=== PATIENT | male | born 1970 | race Caucasian/White ===

== ENCOUNTER 2018-12-16 18:04 | Inpatient (IN) ==
[2018-12-16] MEDS ORDERED: 0.9 % Sodium Chloride Mini Bag 100 ML ONE (23:40)
[2018-12-16] MEDS: *HR* HYDROcodone/Acet 5/325 mg TABLET PO PRN (23:50)
[2018-12-16] MEDS: Ampicillin/Sulbactam 3,000 MG in 0.9 % Sodium Chloride Mini Bag 100 ML IVPB SCH (23:50)
[2018-12-17] MEDS: Ampicillin/Sulbactam 3,000 MG in 0.9 % Sodium Chloride Mini Bag 100 ML IVPB SCH ×2 (05:48→17:33)
[2018-12-17] MEDS: *HR* HYDROcodone/Acet 5/325 mg TABLET PO PRN ×3 (05:49→23:20)
[2018-12-17 10:44] LABS: Calcium 8.6 mg/dL (8.6-10.3)
--- NOTE | 2018-12-17 16:33 | Internal Med History&Physical ---
Date of Encounter: 12/17/18 Time of Encounter: 15:40 Assessment and Plan (1) Abscess of lung with pneumonia Current visit: No Status: Acute Status post LLL lobectomy. Continue IV antibiotics and bulb suction drainage. Lactobacillus will be added. Qualifiers: Laterality: left Lung location: lower lobe of lung Qualified Code(s): J85.1 - Abscess of lung with pneumonia (2) Empyema Current visit: No Status: Acute As above (3) Anemia Current visit: No Status: Acute He received 1 unit of blood transfusion, iron infusion, and Aranesp during his [facility] stay. Recheck iron profile labs in a.m. Qualifiers: Anemia type: other cause Other causes of anemia: chronic disease, other Qualified Code(s): D63.8 - Anemia in other chronic diseases classified elsewhere (4) Acute kidney injury Current visit: No Status: Acute Creatinine has decreased to 3.18 with estimated GFR 21. Renal indices were normal prior to recent [facility] hospitalization. Continue to monitor renal indices. Internal Medicine - H&P: HPI Chief complaint: Left lower lobe abscess with lobectomy Admitted From: Hospital to Hospital Transfer Plans for Post Hospital Care: Home History of present illness: Mr. Colorado is a 48 year old male who was hospitalized at [facility] 11/27/2018 to 12/16/2018 and underwent a left lower lobectomy on November 29 for LLL abscess. Cultures showed Peptostreptococcus anaeurobius, 2 species of Parvimonas micra and an anaerobic Gram positive rickie. He was placed on Unasyn and will continue this for 10 days in swing bed. He had been treated for pneumonia a few weeks before his [facility] stay. Respiratory history is significant for having smoked from age [age] never exce eding 1 pack per day. He denies chronic lung disease and does not use home oxygen. He has not been tested for sleep apnea. Past Med Surg Social Fam HX - Past Medical History Medical history: other Psychiatric history: no psych history - Past Surgical History Additional surgical history: foot surgery with plating - Social History Smoking Status: Former smoker Smokeless Tobacco Status: No Alcohol use: occasionally Drug use: none Internal Medicine - H&P: Meds Ampicillin/Sulbactam [Unasyn] 3,000 mg IVPB Q6HR 11 Days #33 vial 12/16/18 [Rx] Allergy/AdvReac Type Severity Reaction Status Date / Time No Known Allergies Allergy Verified 10/25/18 16:20 All Systems PM: A 10-system review of systems was performed and is negative for pertinent findings except as documented above in the HPI. Review of systems: Gen.: He states his weight has been stable several months Cardiovascular: He denies hypertension NH heart failure angina DVT or pulmonary embolus Respiratory: As per history of present illness GI: He denies disorders of his liver gallbladder or exocrine pancreas : He denies hematuria dysuria or kidney stones Neurologic: He denies large distribution strokes or seizures. Endocrine: He denies diabetes thyroid disease or hyperlipidemia Hematology/oncology: He denies blood disorders cancers or anemia Psychiatric: He denies anxiety depression or other mental health issues [place] skeletal: He had surgery on his left foot several years ago. He denies arthritis gout or other bone joint or muscle disorders - Constitutional Vitals: Temp Pulse Resp BP Pulse Ox 98.5 F 77 16 136/84 97 12/17/18 06:51 12/17/18 06:51 12/17/18 06:51 12/17/18 06:51 12/17/18 14:20 Exam: Gen.: He is a well-developed well-nourished male sitting comfortably in bed who appears in no acute distress HEENT: Head is atraumatic and normocephalic. Eyes: EOMI. There is no scleral icterus. Mouth: Mucosa is moist. Neck: Has a bandage over his right lower neck area from dialysis catheter placement which was later removed. There is no thyromegaly or adenopathy noted. Heart: Regular without murmurs gallops or ectopics Lungs: No wheezes or crackles are heard in the right lung. Left lung has significantly diminished breath sounds in the bases. No wheezes or crackles are heard. Chest: He has a surgical incision with overlying bandage in place in the left lateral upper chest area. A drain tube with suction drainage bulb is present. Abdomen: Soft and nontender. No masses or guarding are noted. Extremities: There is no cyanosis edema or clubbing noted. Dorsalis pedis and posterior tibial pulses are trace palpable bilaterally. Neurologic: Mental status: He is talkative and a good historian. Cranial nerves: Smile is symmetric. Forehead crackles bilaterally. Tongue protrudes midline. EOMI. Motor: There is no pronator drift. Cerebellar: Finger to nose is intact bilaterally. Skin: Warm and dry Internal Med - H&P Results - Labs CBC & Chem 7: 12/17/18 10:18 Labs: BMP 12/17/18 10:18 Sodium 138 Potassium 4.0 Chloride 101 Carbon Dioxide 29 BUN 30 H Creatinine 3.18 H Glucose 120 H Calcium 8.6
[2018-12-17] MEDS: Lactobacillus 1 EACH CAP.SPRINK PO SCH (20:54)
[2018-12-18 05:30] LABS: BUN/Creatinine Ratio 10 (6-26); Blood Urea Nitrogen 27 mg/dL (6-20); eGFR For Non-African Americans 25 (> 60)
[2018-12-18] MEDS: Ampicillin/Sulbactam 3,000 MG in 0.9 % Sodium Chloride Mini Bag 100 ML IVPB SCH ×2 (05:48→18:13)
[2018-12-18] MEDS: Lactobacillus 1 EACH CAP.SPRINK PO SCH ×2 (07:35→22:00)
[2018-12-18 08:58] LABS: % Iron Saturation 27 % (20-55); Iron 55 mcg/dL (65-175); Transferrin 145 mg/dL (203-362)
[2018-12-18 09:16] LABS: Ferritin 795 ng/mL (20-250)
--- NOTE | 2018-12-18 18:02 | Internal Med Progress Note ---
Date of Encounter: 12/18/18 Time of Encounter: 17:45 - Assessment and plan (1) Abscess of lung with pneumonia Current Visit: No Status: Acute Assessment and plan: December 18. Status post LLL lobectomy. Continue IV antibiotics with lactobacillus and bulb suction drainage. I told him that nursing staff had contacted the ID office at [facility] today and was told they recommended continuing IV antibiotics until follow-up appointment with them on December 30. The patient does not want to remain in the hospital that long stating he was told at [facility] he would only need to be in swing bed for 10 days. I told him he can discuss length of stay and antibiotic with his surgeon. Qualifiers: Laterality: left Lung location: lower lobe of lung Qualified Code(s): J85.1 - Abscess of lung with pneumonia (2) Empyema Current Visit: No Status: Acute Assessment and plan: December 18. As above (3) Anemia Current Visit: No Status: Acute Assessment and plan: December 18. Iron studies show iron 55, transferrin saturation 27%, transferrin 145, and ferritin 795. Continue to monitor. Qualifiers: Anemia type: other cause Other causes of anemia: chronic disease, other Qualified Code(s): D63.8 - Anemia in other chronic diseases classified elsewhere (4) Acute kidney injury Current Visit: No Status: Acute Assessment and plan: December 18. BUN and creatinine have decreased to 27 and 2.75 respectively with estimated GFR 25. Continue to monitor. - Subjective Interval history: December 18. He has no new complaints. - Constitutional Vitals: Temp Pulse Resp BP Pulse Ox 98.4 F 83 16 145/85 98 12/18/18 07:30 12/18/18 07:30 12/18/18 07:30 12/18/18 07:30 12/17/18 19:31 Exam: He is resting comfortably in bed and appears in no acute distress. His affect is bright and cheerful. I reviewed his medications and lab results. Internal Medicine: Result - Labs CBC & Chem 7: 12/18/18 04:30 Labs: BMP 12/18/18 04:30 BUN 27 H Creatinine 2.75 H Consult Discharge Plan - Plan Referrals: NONE,PCP [Primary Care Provider] - 1 week
[2018-12-18] MEDS: *HR* HYDROcodone/Acet 5/325 mg TABLET PO PRN (22:00)
[2018-12-19] MEDS: Ampicillin/Sulbactam 3,000 MG in 0.9 % Sodium Chloride Mini Bag 100 ML IVPB SCH ×2 (06:13→18:06)
[2018-12-19] MEDS: Lactobacillus 1 EACH CAP.SPRINK PO SCH ×2 (08:45→21:50)
[2018-12-19] MEDS: *HR* HYDROcodone/Acet 5/325 mg TABLET PO PRN ×2 (10:36→21:50)
[2018-12-20] MEDS: Ampicillin/Sulbactam 3,000 MG in 0.9 % Sodium Chloride Mini Bag 100 ML IVPB SCH ×2 (06:38→18:14)
[2018-12-20] MEDS: Lactobacillus 1 EACH CAP.SPRINK PO SCH ×2 (08:25→20:36)
[2018-12-20] MEDS ORDERED: 0.9 % Sodium Chloride Mini Bag 100 ML ONE (17:47)
[2018-12-20] MEDS: *HR* HYDROcodone/Acet 5/325 mg TABLET PO PRN (20:38)
[2018-12-21] MEDS: Ampicillin/Sulbactam 3,000 MG in 0.9 % Sodium Chloride Mini Bag 100 ML IVPB SCH ×2 (06:49→16:55)
[2018-12-21] MEDS: Lactobacillus 1 EACH CAP.SPRINK PO SCH ×2 (09:34→22:18)
[2018-12-21] MEDS: *HR* HYDROcodone/Acet 5/325 mg TABLET PO PRN ×3 (09:36→22:17)
[2018-12-21] MEDS ORDERED: 0.9 % Sodium Chloride Mini Bag 100 ML ONE (16:52)
--- NOTE | 2018-12-21 17:30 | Internal Med Progress Note ---
Date of Encounter: 12/21/18 Time of Encounter: 17:20 - Assessment and plan (1) Abscess of lung with pneumonia Current Visit: No Status: Acute Assessment and plan: December 18. Status post LLL lobectomy. Continue IV antibiotics with lactobacillus and bulb suction drainage. I told him that nursing staff had contacted the ID office at [facility] today and was told they recommended continuing IV antibiotics until follow-up appointment with them on December 30. The patient does not want to remain in the hospital that long stating he was told at [facility] he would only need to be in swing bed for 10 days. I told him he can discuss length of stay and antibiotic with his surgeon. Qualifiers: Laterality: left Lung location: lower lobe of lung Qualified Code(s): J85.1 - Abscess of lung with pneumonia (2) Empyema Current Visit: No Status: Acute Assessment and plan: December 18. As above (3) Anemia Current Visit: No Status: Acute Assessment and plan: December 18. Iron studies show iron 55, transferrin saturation 27%, transferrin 145, and ferritin 795. Continue to monitor. December 21. Check labs in a.m. Qualifiers: Anemia type: other cause Other causes of anemia: chronic disease, other Qualified Code(s): D63.8 - Anemia in other chronic diseases classified elsewhere (4) Acute kidney injury Current Visit: No Status: Acute Assessment and plan: December 18. BUN and creatinine have decreased to 27 and 2.75 respectively with estimated GFR 25. Continue to monitor. December 21. Check labs in a.m. - Subjective Interval history: December 18. He has no new complaints. December 21. He has no new complaints and feels well - Constitutional Vitals: Temp Pulse Resp BP Pulse Ox 98.6 F 77 16 159/86 97 12/21/18 08:14 12/21/18 08:14 12/21/18 08:14 12/21/18 08:14 12/21/18 08:14 Exam: He is resting comfortably in bed and appears in no acute distress. His affect is bright and cheerful. Reviewed his medications and lab results. Internal Medicine: Result - Labs CBC & Chem 7: 12/18/18 04:30 Consult Discharge Plan - Plan Referrals: NONE,PCP [Primary Care Provider] - 1 week
[2018-12-22] MEDS: Ampicillin/Sulbactam 3,000 MG in 0.9 % Sodium Chloride Mini Bag 100 ML IVPB SCH ×2 (05:18→18:01)
[2018-12-22 06:10] LABS: Basophils # 0.1 K/mcL (0.0-0.2); Basophils % 1.5 %; Eosinophils # 0.2 K/mcL (0.0-0.6); Eosinophils % 2.6 %; Hematocrit 27.3 % (37.5-50.1); Hemoglobin 8.6 g/dL (12.9-16.9); Immature Granulocytes % 1.3 % (0-4); Lymphocytes # 3.3 K/mcL (0.6-4.6); Lymphocytes % 36.1 %; Mean Corpuscular HGB Conc 31.5 g/dL (31.6-35.5); Mean Corpuscular Hemoglobin 28.9 pg (28.0-33.3); Mean Corpuscular Volume 91.6 fL (83.0-100.0); Mean Platelet Volume 9.4 fL (9.4-12.4); Monocytes # 0.8 K/mcL (0.0-1.3); Monocytes % 8.4 %; Neutrophils # 4.6 K/mcL (1.6-8.9); Platelet Count 292 K/mcL (140-400); Red Blood Count 2.98 M/mcL (4.19-5.50); Segmented Neutrophils % 50.1 %
[2018-12-22 06:38] LABS: BUN/Creatinine Ratio 11 (6-26); Blood Urea Nitrogen 24 mg/dL (6-20); eGFR For Non-African Americans 34 (> 60)
[2018-12-22] MEDS: *HR* HYDROcodone/Acet 5/325 mg TABLET PO PRN ×3 (07:56→22:54)
[2018-12-22] MEDS: Lactobacillus 1 EACH CAP.SPRINK PO SCH ×2 (07:56→20:47)
[2018-12-23] MEDS: Ampicillin/Sulbactam 3,000 MG in 0.9 % Sodium Chloride Mini Bag 100 ML IVPB SCH ×2 (05:49→17:55)
[2018-12-23] MEDS: *HR* HYDROcodone/Acet 5/325 mg TABLET PO PRN ×4 (05:57→21:56)
[2018-12-23] MEDS: Lactobacillus 1 EACH CAP.SPRINK PO SCH ×2 (09:07→21:49)
[2018-12-24] MEDS: Ampicillin/Sulbactam 3,000 MG in 0.9 % Sodium Chloride Mini Bag 100 ML IVPB SCH ×3 (02:13→18:17)
[2018-12-24] MEDS: *HR* HYDROcodone/Acet 5/325 mg TABLET PO PRN ×4 (03:41→22:52)
[2018-12-24] MEDS: Lactobacillus 1 EACH CAP.SPRINK PO SCH ×2 (09:06→19:53)
--- NOTE | 2018-12-24 20:26 | Internal Med Progress Note ---
Date of Encounter: 12/24/18 Time of Encounter: 20:15 - Assessment and plan (1) Abscess of lung with pneumonia Current Visit: No Status: Acute Assessment and plan: December 18. Status post LLL lobectomy. Continue IV antibiotics with lactobacillus and bulb suction drainage. I told him that nursing staff had contacted the ID office at [facility] today and was told they recommended continuing IV antibiotics until follow-up appointment with them on December 30. The patient does not want to remain in the hospital that long stating he was told at [facility] he would only need to be in swing bed for 10 days. I told him he can discuss length of stay and antibiotic with his surgeon. December 24. Continue antibiotics with lactobacillus and bulb suction drainage. Follow-up CT is scheduled for 12/26/2018. Qualifiers: Laterality: left Lung location: lower lobe of lung Qualified Code(s): J85.1 - Abscess of lung with pneumonia (2) Empyema Current Visit: No Status: Acute Assessment and plan: December 18. As above (3) Anemia Current Visit: No Status: Acute Assessment and plan: December 18. Iron studies show iron 55, transferrin saturation 27%, transferrin 145, and ferritin 795. Continue to monitor. December 21. Check labs in a.m. Qualifiers: Anemia type: other cause Other causes of anemia: chronic disease, other Qualified Code(s): D63.8 - Anemia in other chronic diseases classified elsewhere (4) Acute kidney injury Current Visit: No Status: Acute Assessment and plan: December 18. BUN and creatinine have decreased to 27 and 2.75 respectively with estimated GFR 25. Continue to monitor. December 21. Check labs in a.m. December 24. Check labs in a.m. - Subjective Interval history: December 18. He has no new complaints. December 21. He has no new complaints and feels well December 24. He has no new complaints. - Constitutional Vitals: Temp Pulse Resp BP Pulse Ox 98.5 F 84 16 147/98 98 12/24/18 19:12 12/24/18 19:12 12/24/18 19:12 12/24/18 19:12 12/24/18 19:12 Exam: Is resting comfortably in bed and appears in no acute distress. His affect is bright and cheerful. There is minimal drainage in the bulb suction device. I reviewed his medications and lab results. Internal Medicine: Result - Labs CBC & Chem 7: 12/22/18 05:27 12/22/18 05:27 Consult Discharge Plan - Plan Referrals: NONE,PCP [Primary Care Provider] - 1 week
[2018-12-25] MEDS: Ampicillin/Sulbactam 3,000 MG in 0.9 % Sodium Chloride Mini Bag 100 ML IVPB SCH ×3 (02:09→18:34)
[2018-12-25] MEDS: *HR* HYDROcodone/Acet 5/325 mg TABLET PO PRN ×3 (03:44→18:34)
[2018-12-25 07:01] LABS: Calcium 9.1 mg/dL (8.6-10.3); Potassium 4.9 mEq/L (3.5-5.1)
[2018-12-25] MEDS: Lactobacillus 1 EACH CAP.SPRINK PO SCH ×2 (09:26→20:27)
[2018-12-26] MEDS: Ampicillin/Sulbactam 3,000 MG in 0.9 % Sodium Chloride Mini Bag 100 ML IVPB SCH ×3 (00:36→11:47)
[2018-12-26] MEDS: *HR* HYDROcodone/Acet 5/325 mg TABLET PO PRN ×3 (00:41→13:31)
[2018-12-26 07:05] VITALS: BP 154/101
[2018-12-26] MEDS: Lactobacillus 1 EACH CAP.SPRINK PO SCH (08:03)
--- NOTE | 2018-12-26 12:34 | Discharge Summary ---
Date of Encounter: 12/26/18 Time of Encounter: 12:25 - Discharge Diagnosis (1) Abscess of lung with pneumonia Priority: Primary Status: Acute Qualifiers: Laterality: left Lung location: lower lobe of lung Qualified Code(s): J85.1 - Abscess of lung with pneumonia (2) Empyema Priority: Secondary Status: Acute (3) Anemia Priority: Secondary Status: Acute Qualifiers: Anemia type: other cause Other causes of anemia: chronic disease, other Qualified Code(s): D63.8 - Anemia in other chronic diseases classified elsewhere (4) Acute kidney injury Priority: Secondary Status: Acute Hospital course: Mr. Colorado is a 48 year old male who was hospitalized at [facility] 11/27/2018 to 12/16/2018 and underwent a left lower lobectomy on November 29 for LLL abscess. Cultures showed Peptostreptococcus anaeurobius, 2 species of Parvimonas micra and an anaerobic Gram positive rickie. He was placed on Unasyn and will continue this for 10 days in swing bed. Initial orders were written by the discharging physicians at [facility]. I saw him on December 17 and performed a swing bed history and physical. He continued with IV Unasyn. Lactobacillus was added. He had no new problems. Follow-up chest CT was done morning of December 26. The report was reviewed by cardiothoracic surgery at [facility] who stated the patient was stable for discharge home with discontinuation of IV antibiotics/PICC line. He will follow-up at the cardiothoracic surgeon's office in 3 days. Azotemia improved with creatinine decreasing to 1.66 on December 25 with estimated GFR 44. - Time Spent with Patient Total time spent providing and/or coordinating discharge services: - Discharge Medications Prescriptions: Discontinued Ampicillin/Sulbactam [Unasyn] 3,000 mg IVPB Q6HR 11 Days #33 vial Allergies/Adverse Reactions: Allergy/AdvReac Type Severity Reaction Status Date / Time No Known Allergies Allergy Verified 10/25/18 16:20 Date of admission: 12/16/18 22:01 Primary care physician: PCP NONE Consults: 12/16/18 22:51 Consult to Occupational Therapy [CONS] Routine Comment: new swing Reason for Consult: To evaluate and treat Does patient have active BEDREST order?: No Is patient medically & hemodynamically stable?: Yes Consult to Physical Therapy [CONS] Routine Comment: new swing Reason for Consult: new swing Does patient have active BEDREST order?: No Is patient medically & hemodynamically stable?: Yes Consult to Spindle Sander [CONS] Routine Reason for SW Consult: new swing 12/17/18 00:02 Consult to Nutrition [CONS] Routine Comment: Consulting Provider: NUTRITION Reason for Dietary Consult: Diet Education MST Score - Constitutional Vitals: Temp Pulse Resp BP Pulse Ox 98.2 F 77 16 154/101 99 12/26/18 07:00 12/26/18 07:00 12/26/18 07:00 12/26/18 07:00 12/26/18 07:00 - Patient Status Disposition: Home, Self-Care - Discharge Instructions Follow Up With: NONE,PCP [Primary Care Provider] - 1 week - Diet and Activity Activity: resume usual activities as tolerated Diet: advance to your usual diet
== END 2018-12-26 14:58 | disposition home or self-care (01) | DRG 178 ==
LOC: INPPIK 22:01
PROVIDERS: ADMIT Internal Medicine; ATTEND Internal Medicine